=== PATIENT | female | born 1975 | race Two or more races ===

== ENCOUNTER 2017-01-26 10:12 | Emergency (ER) | payer MEDICAID ==
[~2017-01-26] VITALS: Ht 167.6 cm; Wt 66.2 kg
[2017-01-26 10:17] VITALS: BP 138/82
--- NOTE | 2017-01-26 11:05 | Emergency Room Report ---
History of Present Illness General Chief Complaint: Lower Extremity Injury Source: Patient Present Illness HPI [id number] walk-in with 1 week left thigh, extremity pain. Didnt take OTC meds. Tried "cupping" without improvement. Thinks mother had DVT. Atramatic No other medical problems. Non-smoker No control Allergies: Coded Allergies: No Known Allergies (Unverified , 01/26/17) Patient History Past Medical History: none Past Surgical History: none Pertinent Family History: other - DVT Last Menstrual Period: 01/11/17 Now: No Immunizations: UTD Reviewed Nursing Documentation: PMH: Agreed, PSxH: Agreed Nursing Documentation-PMH Past Medical History: No Stated History Review of Systems All Other Systems: negative except mentioned in HPI Physical Exam Vital Signs Date Time Temp Pulse Resp B/P Pulse Ox O2 Delivery O2 Flow Rate FiO2 01/26/17 10:17 97.9 72 18 138/82 99 Room Air Sp02 EP Interpretation: reviewed, normal General Appearance: normal inspection, well appearing, no apparent distress, alert, GCS 15, non-toxic Head: normocephalic, atraumatic Eyes: bilateral eye EOMI, bilateral eye PERRL ENT: normal ENT inspection, hearing grossly normal, normal voice Neck: normal inspection, full range of motion, supple, no bony tend Respiratory: normal inspection, lungs clear, normal breath sounds, no respiratory distress, no retraction, no wheezing Cardiovascular #1: regular rate, rhythm, no edema Gastrointestinal: normal inspection, normal bowel sounds, non tender, soft, no guarding, no hernia Genitourinary: no CVA tenderness Musculoskeletal: normal inspection, back normal, normal range of motion, Nadya' s Sign negative, other - Left thigh: multiple areas of circular bruising. Left thigh, hip is grossly non-tender. ROM intact Neurologic: normal inspection, alert, oriented x3, responsive, matching machine operator III-XII nml as tested, motor strength/tone normal, speech normal Psychiatric: normal inspection, judgement/insight normal, mood/affect normal Skin: normal inspection, normal color, no rash Lymphatic: normal inspection Medical Decision Making Diagnostic Impression: Primary Impression: Left thigh pain ER Course VSS. Afebrile Atraumatic No DVT on venous doppler Advised ibuprofen analgesia PMD followup Last Vital Signs Date Time Temp Pulse Resp B/P Pulse Ox O2 Delivery O2 Flow Rate FiO2 01/26/17 10:17 97.9 72 18 138/82 99 Room Air Status: improved Disposition: HOME, SELF-CARE Referrals: NOT CHOSEN IPA/,REFERRING (PCP) MORE OCONNOR M.D. Jan 26, 2017 11:05
[2017-01-26] MEDS ORDERED: IBUPROFEN600 MG ORAL (12:34)
[2017-01-26 12:48] VITALS: BP 138/82
--- NOTE | 2017-01-28 14:42 | Diagnostic Imaging Report ---
APPROVED REPORT CPT Code: 02553 Present Symptoms Comments: R/O DVT LEFT LEG: Venous imaging reveals a patent deep venous system. There is no evidence of thrombus within the femoral, popliteal segments. The greater saphenous vein is also within normal limits. Doppler indicates normal spontaneous flow within these segments.
== END 2017-01-26 12:48 | disposition home or self-care (01) ==
LOC: EMR 10:45
DX: M79.652 Pain in left thigh (principal)
CPT/HCPCS: 93971; 99283

== ENCOUNTER 2017-08-16 08:17 | Emergency (ER) | payer MEDICAID ==
[~2017-08-16] VITALS: Ht 167.6 cm; Wt 65.8 kg
[~2017-08-16 08:17] MED LIST: IBUPROFEN600 MG ORAL
[2017-08-16] MEDS ORDERED: OMEGA-3100 M1 PO (08:26)
[2017-08-16 08:42] LABS: APPEARANCE,URINE SLIGHTLY CLOUDY; BILIRUBIN, URINE NEGATIVE (NEGATIVE); GLUCOSE, URINE (UA) NEGATIVE (NEGATIVE); KETONES,URINE 2+ (NEGATIVE); LEUKOCYTE ESTERASE ,URINE 3+ (NEGATIVE); NITRITE,URINE NEGATIVE (NEGATIVE); PH,URINE 7 (4.5-8.0); PROTEIN,URINE 3+ (NEGATIVE); UROBILINOGEN,URINE NORMAL MG/DL (0.0-1.0)
[2017-08-16 08:46] VITALS: BP 133/73
[2017-08-16 08:48] LABS: COLOR,URINE YELLOW
[2017-08-16] MEDS ORDERED: BACTRIM DS TAB1 EAC1 ORAL (08:58)
--- NOTE | 2017-08-16 09:05 | Emergency Room Report ---
History of Present Illness General Chief Complaint: Fever Source: Patient Present Illness HPI 41-year-old female with 2-3 days of bilateral lower back pain and polyuria associated with fever Denies abdominal pain, vomiting, diarrhea Denies history of frequent UTIs or kidney infection Allergies: Coded Allergies: No Known Allergies (Unverified , 01/26/17) Patient History Past Medical History: none Past Surgical History: none Pertinent Family History: none Social History: Denies: smoking, alcohol use, drug use Last Menstrual Period: 07/28/17 Immunizations: UTD Reviewed Nursing Documentation: PMH: Agreed, PSxH: Agreed Nursing Documentation-PMH Past Medical History: No Stated History Review of Systems All Other Systems: negative except mentioned in HPI Physical Exam Vital Signs Date Time Temp Pulse Resp B/P (MAP) Pulse Ox O2 Delivery O2 Flow Rate FiO2 08/16/17 08:21 102.7 130 18 133/73 98 Room Air Sp02 EP Interpretation: reviewed, normal General Appearance: normal inspection, well appearing, no apparent distress, alert, GCS 15, non-toxic Head: normocephalic, atraumatic Eyes: bilateral eye PERRL, bilateral eye EOMI ENT: normal ENT inspection, hearing grossly normal, normal pharynx, no angioedema, normal voice, TMs + canals normal, uvula midline, moist mucus membranes Neck: normal inspection, full range of motion, supple, thyroid normal, no meningismus, no bony tend Respiratory: normal inspection, lungs clear, normal breath sounds, no rhonchi, no respiratory distress, no retraction, no accessory muscle use, no wheezing, speaking full sentences Cardiovascular #1: regular rate, rhythm, no edema, no JVD, normal capillary refill Gastrointestinal: normal inspection, normal bowel sounds, non tender, soft, no mass, no peritonitis, non-distended, no guarding, no hernia, no pulsatile mass Genitourinary: no CVA tenderness Musculoskeletal: normal inspection, back normal, normal range of motion, no calf tenderness, pelvis stable, Nadya's Sign negative Neurologic: normal inspection, alert, oriented x3, responsive, emergency medicine medical director III-XII nml as tested, motor strength/tone normal, cerebellar normal, normal gait, speech normal Psychiatric: normal inspection, judgement/insight normal, mood/affect normal, no suicidal/homicidal ideation, no delusions Skin: normal inspection, normal color, no rash Lymphatic: normal inspection, no adenopathy Medical Decision Making Diagnostic Impression: Primary Impression: Pyelonephritis ER Course 41-year-old female, febrile and tachycardic with polyuria Her negative, UA grossly infected Clinically patient possibly has pyelonephritis, however exam unremarkable for CVAT She is tolerating by mouth, not septic appearing Does not warrant IV fluid, labs, admission for IV antibiotic at this time ER course: Patient has remained stable during ED stay. Disposition: Patient is to be discharged to home. Prescriptions given are bactrim DS Patient is instructed to follow up with their primary care doctor within 5 days. Strict return precautions discussed with patient such as fever, chills, worsening/severe pain, nausea, vomiting, which may indicate severe illness. Patient verbalizes understanding and agrees with plan. Please note that this Emergency Department Report was dictated using [employer] machine technology software, occasionally this can lead to erroneous entry secondary to interpretation by the dictation equipment Last Vital Signs Date Time Temp Pulse Resp B/P (MAP) Pulse Ox O2 Delivery O2 Flow Rate FiO2 08/16/17 08:46 102.7 18 133/73 98 Room Air 08/16/17 08:21 130 Status: improved Disposition: HOME, SELF-CARE Condition: Improved Scripts Trimethoprim/Sulfamethoxazole 160/800* (BACTRIM DS TABLET*) 1 Each Tablet 1 TAB ORAL Q12H for 10 Days, #20 TAB 0 Refills Prov: MORE OCONNOR M.D. 08/16/17 Patient Instructions: Pyelonephritis, Adult MORE OCONNOR M.D. Aug 16, 2017 09:04
[2017-08-16 09:15] VITALS: BP 133/73
== END 2017-08-16 09:34 | disposition home or self-care (01) ==
LOC: EMR 08:35
DX: N12 Tubulo-interstitial nephritis, not specified as acute or chronic (principal)
CPT/HCPCS: 81003; 81025; 87086; 87181; 99283